=== PATIENT | male | born 1955 | race Caucasian/White ===

== ENCOUNTER 2018-04-26 11:51 | Outpatient (CLI) | payer OTHER ==
--- NOTE | 2018-04-26 16:10 | PET ---
PET WITH CT SKULL TO MID THIGH: CLINICAL HISTORY: Malignant neoplasm of uvula. No prior PET CT imaging available. RADIOPHARMACEUTICAL: 10.7 mCi F18-FDG IV intermixed with 10 mL 0.9% sodium chloride. FINDINGS: There is appropriate biodistribution of radiotracer activity. There are numerous hypermetabolic and enlarged right cervical chain lymph nodes, which span the right neck from the level of the submandibular region to the right supraclavicular fossa, with SUV maximum of approximately 9.5. There is no obvious hypermetabolic mass at the level of the uvula. Limited valerie luation of the oral cavity is present due to prominent metallic spray artifact from dental amalgam. T here is abnormal soft tissue prominence at the level of the right tongue base at the level of the lashae ttis, localizing to the posterior commissure region and within the adjacent prevertebral musculature, which may be physiologic, given the symmetric distribution. There are abnormal, hypermetabolic and e nlarged left periclavicular lymph nodes, and anterior superior mediastinal adenopathy to the left of midline. Within these regions, SUV maximum is approximately 6.2. Due to a fairly conglomerate morphol ogy of the right cervical chain lymph nodes, discrete size measurements are difficult to ascertain on the basis of the attenuation correction nondiagnostic, noncontrast CT imaging, although a dominant l ymph node within the right Level IIA measured approximately 3.0 cm in diameter, and dominant lymph no de on the left, located within the anterior superior left mediastinum measuring approximately 2.5 cm in diameter. There are numerous abnormal pulmonary nodular opacities throughout each lung, some of which demonstra te ground-glass appearance. Within these nodular opacities, there is increased metabolic activity, al though many of these findings are too small for reliable detection by PET resolution. The dominant no dular opacities located within the subpleura of the right lung demonstrate a SUV maximum of approxima tely 1.9-2.2, which is not technically hypermetabolic. There are numerous abnormal hypermetabolic lesions occupying both lobes of the liver with a dominant confluent hypermetabolic mass localizing to the posterior segment right hepatic lobe with a maximum S UV of approximately 11. There are numerous hypermetabolic soft tissue nodules of the central abdomen, difficult to reliably discern on the nonattenuation correction noncontrast CT, likely adenopathy. Th pura findings are hypermetabolic and some are difficult to distinguish from the adjacent pancreatic pa renchyma. These findings demonstrate maximum SUV of approximately 11. There is a hypermetabolic moder ate size left adrenal mass which demonstrates an irregular morphology by CT imaging, and a maximum REYNA V of approximately 10.2, indicative of metastasis. There are multifocal areas of increased metabolic activity distributed within left renal parenchyma, difficult to further discern as some of these find ings could relate to misregistration from the collection system. There are numerous hypermetabolic re troperitoneal, notably aortocaval metastatic lymph nodes. There are numerous blastic, hypermetabolic osseous metastases, notably within the spine, predominance of which are located at the mid to lower thoracic spine region. SUV maximum of these lesions ranges between 10 and 11. IMPRESSION: Widespread metastatic disease involving the neck, chest, and abdomen, as well as diffuse osseous meta stases. POS: [facility]
== END 2018-04-26 11:52 | disposition home or self-care (01) ==
LOC: PET 11:51
PROVIDERS: ATTEND Internal Medicine Hematology & Oncology
DX: C76.0 Malignant neoplasm of head, face and neck (principal); C76.1 Malignant neoplasm of thorax; C79.51 Secondary malignant neoplasm of bone; C76.2 Malignant neoplasm of abdomen
CPT/HCPCS: 78815; A9552

== ENCOUNTER 2018-04-28 11:56 | Inpatient (IN) | payer OTHER, SELFPAY ==
[~2018-04-28 11:56] MED LIST: ISOVUE-370 76%-LOCM 1 ML ONE
[2018-04-28 12:29] LABS: #Lymphocytes 0.5 thou/uL (1.20-3.40); #Monocytes 0.4 thou/uL (0.11-0.59); #Neutrophils 11.5 thou/uL (1.40-6.50); %Basophils 0.2 % (0.0-1.0); %Eosinophils 0.3 % (0.0-10.0); %Lymphocytes 4.3 % (21.0-51.0); %Monocytes 3.3 % (0.0-10.0); Hemoglobin 11.6 g/dL (14.0-18.0); Mean Corpuscular HGB CONC 31.7 g/dL (32.0-36.0); Mean Corpuscular Hemoglobin 30.4 pg (27.0-31.0); Mean Corpuscular Volume 95.9 fL (78.0-98.0); Mean Platelet Volume 9.3 fL (7.4-10.4); Platelet Count 269 thou/uL (130-400); RBC Distribution Width 14.1 % (11.5-14.5); Red Blood Cell (RBC) Count 3.83 mill/uL (4.70-6.10); White Blood Cell (WBC) Count 12.5 thou/uL (4.8-10.8)
[2018-04-28 12:52] LABS: ALT (SGPT) 89 U/L (8-55); AST (SGOT) 109 U/L (5-34); Albumin 3.5 g/dL (3.4-4.8); Alkaline Phosphatase 582 U/L (40-150); Anion Gap 17 mmol/L (10-20); BUN (Urea Nitrogen) 22 mg/dL (8.4-25.7); Bilirubin, Total 0.7 mg/dL (0.2-1.2); Calc. Creatinine Clearance 0 mL/min (70-130); Calcium 9.8 mg/dL (7.8-10.44); Carbon Dioxide 22 mmol/L (23-31); Chloride 99 mmol/L (98-107); Estimated GFR-MDRD 66; Globulin 4.1 g/dL (2.4-3.5); Glucose 96 mg/dL (80-115); Potassium 5.4 mmol/L (3.5-5.1); Protein, Total 7.6 g/dL (5.8-8.1); Sodium 133 mmol/L (136-145)
[2018-04-28 13:14] LABS: CKMB 2.2 ng/mL (0-6.6)
--- NOTE | 2018-04-28 13:58 | RAD ---
PORTABLE CHEST 1 VIEW: Date: 04/28/18 Time: 1240 hours HISTORY: Liver, kidney, and lung cancer. Shortness of breath. FINDINGS/IMPRESSION: The heart size is normal. The aorta is tortuous. The lungs are well expanded without lobar consolidat ion, pneumothoraces, or pleural effusions. The aorta is tortuous. Mild patchy infiltrates are seen, r ight greater than left. Small nodules are also noted. Findings are suspicious for metastatic disease. POS: [facility]
--- NOTE | 2018-04-28 14:12 | CT ---
CT ANGIO CHEST WITH CONTRAST: Date: 04/28/18 HISTORY: Hypoxia. COMPARISON: Chest radiograph same date. PET CT 2 days prior. FINDINGS: CT angiogram chest performed after the intravenous administration of contrast. 3D rendering is provid ed. FINDINGS: The mid ascending aorta measures 4.6 cm in size, dilated. Transverse and descending aorta are normal. No intimal flap is appreciated. There is artifactual decreased attenuation of the right lower lobe pulmonary arteries, for which an i ntraluminal defect is not seen, only linear areas of hypointensity due to motion. Extensive hepatic m etastatic disease. Numerous peripheral opacities throughout the lungs, predominantly in the upper lob es. The full extent of metastatic disease has been described on the PET CT dated 04/26/18. Large abno rmal prevascular lymph node measures 2.0 cm in short axis. There is an abnormal mass in the left adrenal gland containing calcifications. Osseous metastatic dis ease has been described. IMPRESSION: 1. No proximal or segmental pulmonary arterial filling defect given the limits of this examination. 2. Peripherally predominant patchy opacity, some with ground-glass, throughout the lungs. This has i maging characteristics of organizing pneumonia. 3. As described on the PET CT 2 days prior, there is extensive metastatic disease. 4. Ascending aortic dilatation measuring up to 4.5 cm. POS: [facility]
[2018-04-28 16:38] LABS: CKMB 1.8 ng/mL (0-6.6)
[2018-04-28] MEDS ORDERED: Ondansetron ODT 4 MG TAB SL PRN (18:29)
[2018-04-28] MEDS ORDERED: Ondansetron PF 4 MG/2 ML Vial IVP PRN ×2 (18:29→18:31)
[2018-04-28] MEDS ORDERED: Acetaminophen 325 MG TAB PO PRN ×2 (18:29→18:31)
[2018-04-28] MEDS ORDERED: HYDROcodone/Acetaminophen 5/325 mg Tablet PO PRN ×2 (18:29)
[2018-04-28] MEDS ORDERED: Ondansetron ODT 4 MG TAB PO PRN (18:31)
[2018-04-28] MEDS ORDERED: Acetaminophen/Codeine 30-300mg Tablet PO PRN (18:31)
[2018-04-28] MEDS ORDERED: Bisacodyl 5 MG TAB PO PRN (18:31)
[2018-04-28] MEDS ORDERED: hydrALAZINE 20 MG/ML VIAL SLOW IVP PRN (18:31)
[2018-04-28] MEDS ORDERED: Senokot S 8.6-50 MG TAB PO PRN (18:31)
[2018-04-28] MEDS: Famotidine 20 MG TAB PO SCH (19:39)
[2018-04-28] MEDS: Docusate 100 MG CAP PO SCH (19:39)
[2018-04-28] MEDS: Azithromycin 500 MG in Sodium Chloride 0.9% 250 ML 250 ML IVPB SCH (19:40)
[2018-04-28] MEDS: traMADol HCl 50 MG TAB PO PRN (19:49)
[2018-04-28] MEDS: cefTRIAXone\\ROCEPHIN 1 GM in Sodium Chloride 0.9% 100 ML IVPB SCH (21:24)
--- NOTE | 2018-04-28 21:26 | HP ---
PRIMARY CARE PHYSICIAN: Gerda Caro, her #[phone]. ONCOLOGIST: Dr. Soliman. CHIEF COMPLAINT: Shortness of breath. HISTORY OF PRESENT ILLNESS: Mr. Brown is a very pleasant 62-year-old gentleman who presents to the emergency room with complaints of shortness of breath. He says it has been worse over the last 10 days. He says this all started a couple of months ago when he had what he thought was probably a bronchitis or pneumonia and he was seen by his primary care physician. She evaluated him and initially treated him for pneumonia, but then it was ultimately found that he had lung cancer which was metastatic squamous cell carcinoma. He says that he has not yet received treatment. He is still in the process of determining the exact identity or a pathology of the cancer and he had been stable after being treated with antibiotics earlier last month, but then in the last 10 days he has been getting progressively short of breath. He says it is worse when he tries to move or changing position. He says when he does move it is suffocating and he says the distress score is about 8/ 10. He denies having any chest pain other than some pain in the lower right side. He has had a cough which is productive of some whitish sputum. No hemoptysis. No fever, no chills, but he does have a poor appetite and notes abdominal pain and nausea as well as bloating when he tries to eat. When he was evaluated in the ER, he had a chest x-ray as well as CT angiogram of the chest done. There was no evidence of pulmonary embolism. However, it was found that he had bilateral patchy infiltrates, worrisome for pneumonia, as well as advanced metastatic disease in his chest. REVIEW OF SYSTEMS: All systems were reviewed and are negative except for that mentioned in the history of present illness. 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 He has a history of radiculopathy at T2 as well as internal and external hemorrhoids. PAST SURGICAL HISTORY: He has had surgery for pilonidal cyst. ALLERGIES: NO KNOWN DRUG ALLERGIES. FAMILY HISTORY: His father at age 47 of an NE. Older brother had a five-vessel CABG. Brother also had hemorrhoids. SOCIAL HISTORY: He is . He has two adult children. He is a retired ER nurse. He is a former smoker. He quit on this just past year. He smoked half a pack of cigarettes for 40 years. He occasionally uses marijuana, last use was three months ago and he is a social drinker and he would like to be a full code, but would not want to be on a ventilator or life support for a long time. CURRENT MEDICATIONS: Include 1. Tylenol No. 3 q.6 as needed. 2. Lisinopril daily. 3. Skelaxin 800 mg as needed. 4. Prednisone 20 mg daily. 5. Lisinopril 10 mg daily. 6. Metamucil as needed. PHYSICAL EXAMINATION: GENERAL: He is alert and oriented. He appears to be in no acute distress. He is well developed and well nourished. VITAL SIGNS: Blood pressure is 158/104, heart rate 71, respiratory rate of 20, temperature is 98.4. His O2 saturation was 72% on room air and then 97% on oxygen. HEENT: His pupils are equal, round, and reactive. Extraocular muscles are intact. His sclerae are anicteric. Throat, there is no erythema, no exudates. No adenopathy. LUNGS: He has bilateral wheezing. There are no rales. CARDIOVASCULAR: He has a normal S1, S2. No S3 or S4. He has a grade 2/6 systolic murmur. ABDOMEN: Soft. He did have some right upper quadrant tenderness. Positive for bowel sounds. There is no rebound or guarding. EXTREMITIES: There is no clubbing or cyanosis, no edema. NEUROLOGIC: Grossly nonfocal. LABORATORY DATA: White blood cell count 12.5, hemoglobin 11.6, hematocrit is 36.7, and platelet count is 269. Sodium 133, potassium 5.4, chloride is 99, CO2 is 22 , BUN of 22, creatinine 1.13, glucose is 96, AST is 109, ALT is 89, alkaline phosphatase is 582. ASSESSMENT: This is a pleasant 62-year-old gentleman who presents with an acute on chronic respiratory failure with hypoxemia, likely due to a combination of factors including advancing lung cancer as well as a bilateral pneumonia. He will be admitted to telemetry as his troponin is slightly elevated. Start him on IV antibiotics initially for a community-acquired pneumonia. Given he also has the complicating factor of the lung cancer, we will consult Pulmonology to aid in his management. -Squamous cell lung metastatic cancer. He is seeing Dr. Soliman, has currently not started treatment and his plan is ultimately to go to [facility] for a clinical trial. -Hypertension. We will continue lisinopril as well as p.r.n. medication. -He will be placed on DVT and GI prophylaxis. - Symptom control. We will start with tramadol and also offer Tylenol No. 3 as needed and titrate pain medications as necessary. Job ID: [id number] MTDD
[2018-04-28 22:59] VITALS: BMI 23.5
[2018-04-29 06:39] LABS: #Lymphocytes 0.8 thou/uL (1.20-3.40); #Monocytes 0.7 thou/uL (0.11-0.59); %Basophils 0.2 % (0.0-1.0); %Eosinophils 0.3 % (0.0-10.0); %Lymphocytes 5.9 % (21.0-51.0); %Monocytes 5.4 % (0.0-10.0); %Neutrophils 88.2 % (42.0-75.0); Hemoglobin 10.3 g/dL (14.0-18.0); Mean Corpuscular HGB CONC 32.6 g/dL (32.0-36.0); Mean Corpuscular Hemoglobin 31.4 pg (27.0-31.0); Mean Corpuscular Volume 96.3 fL (78.0-98.0); Mean Platelet Volume 9.4 fL (7.4-10.4); Platelet Count 224 thou/uL (130-400); RBC Distribution Width 14.3 % (11.5-14.5); Red Blood Cell (RBC) Count 3.28 mill/uL (4.70-6.10); White Blood Cell (WBC) Count 13.6 thou/uL (4.8-10.8)
[2018-04-29 06:54] LABS: Anion Gap 14 mmol/L (10-20); BUN (Urea Nitrogen) 22 mg/dL (8.4-25.7); Calc. Creatinine Clearance 85 mL/min (70-130); Calcium 8.6 mg/dL (7.8-10.44); Carbon Dioxide 22 mmol/L (23-31); Chloride 101 mmol/L (98-107); Estimated GFR-MDRD 76; Glucose 108 mg/dL (80-115); Potassium 4.8 mmol/L (3.5-5.1); Sodium 132 mmol/L (136-145)
[2018-04-29] MEDS ORDERED: Sodium Chloride 0.65% Nasal 44 ML BOT EA NARE PRN (06:54)
--- NOTE | 2018-04-29 10:10 | PDOC.PN ---
- Subjective Encounter Start Date: 04/29/18 Encounter Start Time: 10:08 Mr. Brown was see today in follow-up of Pneumonia and Metastatic lung cancer. He is feeling very short of breath today. He does not notice any improvement in his breathing overnight. He is very " winded " with talking and changing positions. - Objective Resuscitation Status - Order Detail: 04/28/18 17:28 Resuscitation Status Routine Resuscitation Status: FULL: Full Resuscitation MAR Reviewed: Yes Vital Signs & Weight: Vital Signs (12 hours) Temp Pulse Resp BP Pulse Ox 04/29/18 07:50 97.4 F L 84 22 H 131/90 92 L 04/29/18 02:56 97.8 F 92 15 123/75 91 L Weight Weight 173 lb 8 oz Result Diagrams: 04/29/18 05:50 04/29/18 05:50 Phys Exam - Physical Examination HEENT: PERRLA Respiratory: no wheezing, no rales, no rhonchi Cardiovascular: RRR, no significant murmur, no rub Gastrointestinal: soft, non-tender, no distention, positive bowel sounds Musculoskeletal: no edema, pulses present Dx/Plan (1) Acute respiratory failure with hypoxemia Code(s): J96.01 - ACUTE RESPIRATORY FAILURE WITH HYPOXIA Status: Acute (2) Pneumonia, community acquired Code(s): J18.9 - PNEUMONIA, UNSPECIFIED ORGANISM Status: Acute (3) Metastatic squamous cell carcinoma Code(s): C79.9 - SECONDARY MALIGNANT NEOPLASM OF UNSPECIFIED SITE Status: Acute (4) Hypertension Code(s): I10 - ESSENTIAL (PRIMARY) HYPERTENSION Status: Chronic - Plan * Acute respiratory failure- not much improvement overnight- will continue the current antibiotics * Continue Neb treatments and steroids , and await further recommendations from PCCM * HTN- blood pressure is stable. * Symptom relief
[2018-04-29] MEDS: predniSONE 20 MG TAB PO SCH (10:41)
[2018-04-29] MEDS: Docusate 100 MG CAP PO SCH ×2 (10:42→20:38)
[2018-04-29] MEDS: Enoxaparin Sodium 40 MG/0.4 ML SYRINGE SC SCH (10:42)
[2018-04-29] MEDS: Famotidine 20 MG TAB PO SCH ×2 (10:48→20:39)
[2018-04-29] MEDS: traMADol HCl 50 MG TAB PO PRN ×2 (10:48→20:37)
[2018-04-29] MEDS: Fluticasone Propionate Nasal Spray 16 gm Bottle NASAL SCH (11:10)
[2018-04-29] MEDS ORDERED: Lorazepam 2 MG/ML VIAL SLOW IVP PRN (16:29)
[2018-04-29] MEDS: Lorazepam 0.5 MG TAB PO PRN ×2 (17:38→20:39)
--- NOTE | 2018-04-29 18:02 | CON ---
DATE OF CONSULTATION: HISTORY OF PRESENT ILLNESS: Bruce Brown is a very pleasant 62-year-old male. 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 He lives in the [facility]. He says he 1st started feeling bad in February while when he noticed dyspnea on exertion. He was seen in [place] last year for lymphadenopathy in his neck. He said he had a needle aspirate of one of his lymph nodes and was told that he did not have any cancer, but it was suggested to him that he have a lymph node removed for a more thorough examination. He said he was asked for 5000 dollar deposit for the lymph node biopsy. This upset him, so he never went back. He was seen early in 2019 by his nurse practitioner in [place], she felt he might have pneumonia. I have explained that this is a reasonable diagnosis after reviewing his radiograph. When he failed to improve and he developed more chest discomfort and right upper quadrant discomfort, he underwent CT scanning, which showed multiple nodular lesions in his chest as well as extensive hepatic metastases. His lymphadenopathy has persisted, and from what he tells me, I believe has progressed. PAST MEDICAL HISTORY: Remarkable for; 1. Trigeminal neuralgia. 2. He said when he was a teenager, he developed a red rash and he has dealt with this rash in his entire life. 3. History of hypertension. 4. History of a recent biopsy of his liver, which revealed squamous cell cancer. 5. History of radiculopathy. 6. History of hemorrhoids in his entire life. 7. He is not smoking now, but said he has been on and off smoker his entire life , never more than a pack a day. FAMILY HISTORY: Positive for vascular disease. SOCIAL HISTORY: He is not a daily drinker. MEDICATIONS: Prior to admission, he is on; 1. Lisinopril. 2. Skelaxin. 3. Prednisone. 4. Lisinopril. 5. Metamucil. PHYSICAL EXAMINATION: GENERAL: He is in no distress. He is afebrile. Heart rate is in the 90s, respiratory rate is 20, oximetry is 93 on 4L, blood pressure is 131/90. HEENT: Pupils are equal. Sclerae are anicteric. Extraocular movements are full. NECK: Supple. He does have palpable rock-hard nodes in both sides of his neck. LUNGS: Remarkable for coarse equal breath sounds with fine crackles at his bases. HEART: Regular rhythm. No S3. ABDOMEN: Soft and nontender. EXTREMITIES: Without clubbing, cyanosis, or edema. LABORATORY DATA: White count 13.6, hemoglobin 10.3, and platelets 224. Sodium 132, potassium 4.8, chloride 101, bicarb 22, BUN 22, creatinine 1.0, and glucose 108. Liver enzymes as expected are elevated, alkaline phosphatase is 582, it is higher than I would expect, which would make me wonder if he has bone mets. He had PET imaging on 04/26, which showed multiple hot cervical nodes, supraclavicular node on the right, it had SUVs of 9, had an abnormality seen on the CT images at the base of the right side of his tongue. He had left paraclavicular lymph nodes and superior mediastinal lymph nodes. He had pulmonary nodules, which had increased metabolic activity. He also had some ground glass infiltrates. The liver was full of hypermetabolic lesions. He had multiple abdominal lymph nodes that were hypermetabolic. He had adrenal masses, which are hypermetabolic. Retroperitoneal and aortocaval nodes were also noted. He had numerous blastic hypermetabolic osseous mets in his spine. IMPRESSION: Widespread metastatic squamous cell carcinoma. I suspect all of his pulmonary complaints (progressive dyspnea on exertion) are not infectious). I suspect all his complaints related to widespread squamous cell carcinoma. Given that he presented with lymph nodes, I would wonder if his presentation was not a head and neck cancer, although certainly could be a lung cancer. This is a very aggressive. In any event, he was being contemplated for transfer to [facility] for clinical trial. It has been 2 weeks since he has been seen by the oncologist and I have contacted the oncologist on-call. I would recommend that we start treatment immediately if this is feasible, but because I do not think he has 1-2 months to qualify for a protocol in [facility]. I suspect he has less than a month unless something improved dramatically here in the near future. His primary oncologist will be back on Wednesday and will make recommendations. Hopefully, all the tumor testing for immuno markers will be back by then. Job ID: [id number] 70 minute consulte with 50% of time spent on unit coordinating care [facility]
[2018-04-29] MEDS: Azithromycin 500 MG in Sodium Chloride 0.9% 250 ML 250 ML IVPB SCH (20:26)
[2018-04-29] MEDS: cefTRIAXone\\ROCEPHIN 1 GM in Sodium Chloride 0.9% 100 ML IVPB SCH (21:52)
[2018-04-30] MEDS: traMADol HCl 50 MG TAB PO PRN ×3 (05:20→21:37)
[2018-04-30] MEDS: Fluticasone Propionate Nasal Spray 16 gm Bottle NASAL SCH (10:55)
[2018-04-30] MEDS: predniSONE 20 MG TAB PO SCH (10:56)
[2018-04-30] MEDS: Lisinopril 10 MG TAB PO SCH (10:57)
[2018-04-30] MEDS: Famotidine 20 MG TAB PO SCH ×2 (10:57→21:38)
[2018-04-30] MEDS: Docusate 100 MG CAP PO SCH ×2 (10:58→21:38)
[2018-04-30] MEDS: Enoxaparin Sodium 40 MG/0.4 ML SYRINGE SC SCH (10:59)
--- NOTE | 2018-04-30 15:26 | PDOC.PN ---
- Subjective Encounter Start Date: 04/30/18 Encounter Start Time: 15:24 Mr. Brown was seen today in follow-up of Metastatic lung cancer and respiratory failure. He has continues to have progressive shortness of breath. He also continues to have the pain on the right side, and this has been relieved with tramadol. - Objective Resuscitation Status - Order Detail: 04/28/18 17:28 Resuscitation Status Routine Resuscitation Status: FULL: Full Resuscitation MAR Reviewed: Yes Vital Signs & Weight: Vital Signs (12 hours) Temp Pulse Resp BP Pulse Ox 04/30/18 13:37 92 L 04/30/18 13:34 111 H 16 04/30/18 10:45 97.8 F 102 H 20 136/96 H 100 04/30/18 04:00 97.9 F 79 18 131/87 100 Weight Weight 173 lb 8 oz I&O: 04/29/18 04/30/18 05/01/18 06:59 06:59 06:59 Intake Total 610 Output Total 675 Balance -65 Result Diagrams: 04/29/18 05:50 04/29/18 05:50 Phys Exam - Physical Examination HEENT: PERRLA Respiratory: no wheezing, no rales, no rhonchi, clear to auscultation bilateral Cardiovascular: RRR, no significant murmur, no rub Gastrointestinal: soft, non-tender, positive bowel sounds Musculoskeletal: no edema, pulses present Dx/Plan (1) Acute respiratory failure with hypoxemia Code(s): J96.01 - ACUTE RESPIRATORY FAILURE WITH HYPOXIA Status: Acute (2) Pneumonia, community acquired Code(s): J18.9 - PNEUMONIA, UNSPECIFIED ORGANISM Status: Acute (3) Metastatic squamous cell carcinoma Code(s): C79.9 - SECONDARY MALIGNANT NEOPLASM OF UNSPECIFIED SITE Status: Acute (4) Hypertension Code(s): I10 - ESSENTIAL (PRIMARY) HYPERTENSION Status: Chronic - Plan * Acute Respiratory Failure- Mostly due to advancing metastatic cancer to the lungs- Discussed with Dr. Galicia . The Oncology team was still awaiting the results from testing for PLG-1 receptors, but he may need to start chemotherapy before results are final * Possible Pneumonia- continue Rocephin and Azithromycin. * HTN- blood pressure is better- Lisinopril has been re-started * Symptom relief- he is getting acceptable results with Tramadol and Ativan so far
--- NOTE | 2018-04-30 16:58 | PRG ---
DATE OF SERVICE: 04/30/2018 SUBJECTIVE: Bruce Brown feels about the same. He has had no fever. He is mildly dyspneic at rest, but as long as he did not move, he says he feels okay. OBJECTIVE: He is afebrile. Heart is 102 to 111 this afternoon, respiratory rates in the teens to low 20s, oximetry is 92% on 5 L. Blood pressure 136/96. Lungs are remarkable for crackles at his bases. Heart is regular rhythm. Abdomen is soft. Cultures are negative at 48 hours. IMPRESSION: Progressive widely metastatic squamous cell carcinoma ?lung primary versus upper airway primary. In the event, he has been seen by Oncology and hopefully there will be a treatment plan shortly. I do believe we can switch him off IV antimicrobial therapy at this point. I believe quite strongly that all of his radiographic abnormalities are related to his malignancy. I believe all of his symptoms are as well. Job ID: [id number]
[2018-04-30] MEDS: Cefdinir 300 MG CAP PO SCH (21:37)
[2018-04-30] MEDS: Vancomycin HCl 1.25 GM in Sodium Chloride 0.9% 250 ML 250 ML IVPB SCH (22:49)
--- NOTE | 2018-04-30 22:50 | RAD ---
PORTABLE CHEST ONE VIEW: 04/30/18 at 9:37 p.m. HISTORY: Shortness of breath. FINDINGS: Comparison made to exam of 04/28/18. The heart size is normal. patchy infiltrates are seen in the lower lung zones on either side. A small left pleural effusion may be present. IMPRESSION: Findings are suspicious for pneumonia. POS: [facility]
[2018-04-30] MEDS ORDERED: Vancomycin HCl 1 GM in Premix Bag 1 BAG IVPB SCH (23:00)
[2018-04-30 23:06] LABS: #Neutrophils 13.2 thou/uL (1.40-6.50); %Eosinophils 0.2 % (0.0-10.0); %Lymphocytes 6.4 % (21.0-51.0); %Monocytes 6.4 % (0.0-10.0); Hemoglobin 13.1 g/dL (14.0-18.0); Lactic Acid 2.2 mmol/L (0.5-2.2); Mean Corpuscular Hemoglobin 30.7 pg (27.0-31.0); Mean Corpuscular Volume 96.1 fL (78.0-98.0); Mean Platelet Volume 9.6 fL (7.4-10.4); Platelet Count 263 thou/uL (130-400); RBC Distribution Width 14.9 % (11.5-14.5); Red Blood Cell (RBC) Count 4.27 mill/uL (4.70-6.10); White Blood Cell (WBC) Count 15.2 thou/uL (4.8-10.8)
[2018-04-30 23:12] LABS: Anion Gap 17 mmol/L (10-20); BUN (Urea Nitrogen) 29 mg/dL (8.4-25.7); Calc. Creatinine Clearance 80 mL/min (70-130); Calcium 9.4 mg/dL (7.8-10.44); Carbon Dioxide 19 mmol/L (23-31); Chloride 99 mmol/L (98-107); Estimated GFR-MDRD 70; Glucose 107 mg/dL (80-115); Potassium 5.3 mmol/L (3.5-5.1); Sodium 130 mmol/L (136-145)
[2018-04-30 23:14] LABS: Troponin I 0.116 ng/mL (< 0.028)
[2018-05-01] MEDS: Piperacillin/Tazobactam 4.5 GM in Sodium Chloride 0.9% 100 ML IVPB SCH ×3 (00:35→17:11)
[2018-05-01] MEDS: Sodium Chloride 0.9% 1,000 ML IV SCH ×3 (00:54→22:31)
[2018-05-01 04:49] LABS: Troponin I 0.097 ng/mL (< 0.028)
[2018-05-01] MEDS: Docusate 100 MG CAP PO SCH ×2 (08:50→20:41)
[2018-05-01] MEDS: predniSONE 20 MG TAB PO SCH (08:50)
[2018-05-01] MEDS: Lisinopril 10 MG TAB PO SCH (08:50)
[2018-05-01] MEDS: Cefdinir 300 MG CAP PO SCH ×2 (08:50→20:41)
[2018-05-01] MEDS: Famotidine 20 MG TAB PO SCH ×2 (08:51→20:41)
[2018-05-01 09:09] LABS: ALT (SGPT) 103 U/L (8-55); AST (SGOT) 133 U/L (5-34); Albumin 2.9 g/dL (3.4-4.8); Alkaline Phosphatase 647 U/L (40-150); Anion Gap 18 mmol/L (10-20); BUN (Urea Nitrogen) 26 mg/dL (8.4-25.7); Calc. Creatinine Clearance 93 mL/min (70-130); Carbon Dioxide 18 mmol/L (23-31); Chloride 103 mmol/L (98-107); Estimated GFR-MDRD 83; Globulin 3.6 g/dL (2.4-3.5); Glucose 78 mg/dL (80-115); Potassium 4.8 mmol/L (3.5-5.1); Protein, Total 6.5 g/dL (5.8-8.1); Sodium 134 mmol/L (136-145)
[2018-05-01] MEDS: traMADol HCl 50 MG TAB PO PRN ×3 (09:13→22:26)
--- NOTE | 2018-05-01 12:03 | PDOC.PN ---
- Subjective Encounter Start Date: 05/01/18 Encounter Start Time: 12:01 Mr. Brown was seen today in follow-up of Acute respiratory failure from advancing metastatic cancer. He continues to get progressive shortness of breath. - Objective Resuscitation Status - Order Detail: 04/28/18 17:28 Resuscitation Status Routine Resuscitation Status: DNAR: NO Resuscitation Discussed with: pt as requested to be DNR/DNI MAR Reviewed: Yes Vital Signs & Weight: Vital Signs (12 hours) Temp Pulse Resp BP BP Pulse Ox 05/01/18 08:50 119/87 05/01/18 07:19 100 05/01/18 07:08 84 12 05/01/18 03:57 97.6 F 98 20 123/85 99 05/01/18 01:35 85 20 100 Weight Weight 173 lb 8 oz I&O: 04/30/18 05/01/18 05/02/18 06:59 06:59 06:59 Intake Total 610 1430 Output Total 675 Balance -65 1430 Result Diagrams: 04/30/18 22:44 05/01/18 08:42 Phys Exam - Physical Examination HEENT: PERRLA Cardiovascular: RRR, no significant murmur, no rub Gastrointestinal: soft, non-tender, no distention, positive bowel sounds Musculoskeletal: no edema Dx/Plan (1) Acute respiratory failure with hypoxemia Code(s): J96.01 - ACUTE RESPIRATORY FAILURE WITH HYPOXIA Status: Acute (2) Pneumonia, community acquired Code(s): J18.9 - PNEUMONIA, UNSPECIFIED ORGANISM Status: Acute (3) Metastatic squamous cell carcinoma Code(s): C79.9 - SECONDARY MALIGNANT NEOPLASM OF UNSPECIFIED SITE Status: Acute (4) Hypertension Code(s): I10 - ESSENTIAL (PRIMARY) HYPERTENSION Status: Chronic - Plan * Acute respiratory failure with hypoxemia- the patient's oxygen requirements continue to increase- he is now on a Ventturi mask * He says he has decided to change his code status. He does not want to be placed on a Ventilator, even if he starts chemotherapy, and with the knowledge that his symptoms could worsen with chemotherapy, before they improve * HTN- blood pressure has remained stable * Possible Pneumonia- he was placed on broad spectrum antibiotics again last night * Metastatic Squamous cell carcinoma- Oncolog recommendations noted- plan is to start therapy as soon as possible.
[2018-05-01] MEDS: Enoxaparin Sodium 40 MG/0.4 ML SYRINGE SC SCH (12:28)
[2018-05-01] MEDS: Vancomycin HCl 1.25 GM in Sodium Chloride 0.9% 250 ML 250 ML IVPB SCH ×2 (12:28→22:27)
[2018-05-01] MEDS: Fluticasone Propionate Nasal Spray 16 gm Bottle NASAL SCH (12:52)
[2018-05-01 19:46] VITALS: TEMP 97.6
[2018-05-02] MEDS: Piperacillin/Tazobactam 4.5 GM in Sodium Chloride 0.9% 100 ML IVPB SCH ×2 (00:38→10:17)
[2018-05-02 04:51] LABS: CEA, Serum 9.63 ng/mL (< or = 5.0)
[2018-05-02 04:56] LABS: Band 4 % (5-11); Eosinophils 1 % (0-10); Hemoglobin 12.6 g/dL (14.0-18.0); Large Platelets SLIGHT; Lymphocytes 8 % (21-51); MDiff Complete? YES; Mean Corpuscular HGB CONC 31.2 g/dL (32.0-36.0); Mean Corpuscular Hemoglobin 30.3 pg (27.0-31.0); Mean Corpuscular Volume 97.1 fL (78.0-98.0); Mean Platelet Volume 9.7 fL (7.4-10.4); Monocytes 2 % (0-10); Neutrophil 85 % (42-75); Nucleated RBC 1 % (0); Platelet Count 236 thou/uL (130-400); Platelet Morphology Comment Appears Adequate; Red Blood Cell (RBC) Count 4.17 mill/uL (4.70-6.10); White Blood Cell (WBC) Count 16.2 thou/uL (4.8-10.8)
[2018-05-02 05:04] LABS: HBSAB Concentration 1.82 mIU/mL; HBSAg Index 0.22 S/CO (0-0.99); Hep B Core Total Ab Non-Reactive (NonReactive); Hep B Core Total Index 0.03 S/CO (0-0.79); Hep B Surf AB Non-Reactive (NonReactive); Hep B Surf Ag Non-Reactive S/CO (NonReactive)
[2018-05-02] MEDS ORDERED: Fosaprepitant Dimeglumine 150 MG in Sodium Chloride 0.9% 250 ML 150 ML IVPB SCH (05:30)
[2018-05-02] MEDS ORDERED: Palonosetron HCl 0.25 MG in Sodium Chloride 0.9% 50 ML IVPB SCH (05:30)
[2018-05-02] MEDS ORDERED: Dexamethasone 10 MG/ML VIAL SLOW IVP SCH (05:30)
[2018-05-02] MEDS ORDERED: Sodium Chloride 0.9% 1,000 ML IV SCH ×2 (05:30→09:52)
[2018-05-02] MEDS ORDERED: DOCETAXEL IVPB SCH (05:45)
[2018-05-02] MEDS ORDERED: SODIUM CHLORIDE 0.9% IVPB SCH (05:45)
[2018-05-02] MEDS ORDERED: MANNITOL IV SCH (05:45)
[2018-05-02] MEDS ORDERED: CISPLATIN IV SCH (05:45)
[2018-05-02] MEDS ORDERED: SODIUM CHLORIDE 0.9% IV SCH (05:45)
[2018-05-02 08:47] LABS: Base Excess (BEa) -3.6 mEq/L (-2.0 to +3.0); CO2 Tension 32.1 mmHg (35.0-45.0); Calcium, Ionized 1.28 mmol/L (1.12-1.30); Carboxyhemoglobin (COHb) 1.3 gm% (0.0-3.0); Hemoglobin (Hb) 13.7 g/dL (14.0-18.0); Potassium - ABG Lab 4.92 mmol/L (3.70-5.30); pH, Arterial 7.41 (7.35-7.45)
[2018-05-02 08:48] LABS: O2 Tension (PaO2) 52.5 mmHg (> 80.0); Puncture Site LR
[2018-05-02 08:49] LABS: ALV-art Gradient 192.575 (0-20)
[2018-05-02] MEDS ORDERED: Furosemide 40 MG/4 ML VIAL IVP ONE (09:29)
[2018-05-02] MEDS ORDERED: Enoxaparin Sodium 80 MG/0.8 ML SYRINGE SC SCH ×3 (09:52→21:00)
[2018-05-02] MEDS ORDERED: Furosemide 100 MG/10 ML VIAL SLOW IVP SCH (10:00)
[2018-05-02] MEDS: Docusate 100 MG CAP PO SCH (10:07)
[2018-05-02] MEDS: Fluticasone Propionate Nasal Spray 16 gm Bottle NASAL SCH (10:08)
[2018-05-02] MEDS: Lisinopril 10 MG TAB PO SCH (10:08)
[2018-05-02] MEDS: Famotidine 20 MG TAB PO SCH (10:08)
[2018-05-02 10:09] VITALS: BP 119/87
[2018-05-02 10:14] LABS: Lactic Acid 2.7 mmol/L (0.5-2.2)
--- NOTE | 2018-05-02 10:14 | RAD ---
CHEST ONE VIEW: History: Metastatic cancer. Comparison: Two day's prior. FINDINGS: Multifocal opacities are similar. Cardiac silhouette and mediastinal contours are similar. IMPRESSION: Similar examination of the chest. POS: [facility]
[2018-05-02 10:15] LABS: Vancomycin, Trough 18.6 ug/mL
[2018-05-02] MEDS ORDERED: methylPREDNISolone Sod Succ 40 MG VIAL IVP SCH ×2 (10:15→12:00)
[2018-05-02] MEDS: Morphine 10 MG/ML VIAL SLOW IVP PRN ×3 (10:18→12:37)
--- NOTE | 2018-05-02 10:38 | PDOC.PN ---
- Subjective Encounter Start Date: 05/02/18 Encounter Start Time: 10:36 Mr. Brown was seen today in follow-up of acute respiratory failure. He became more hypoxic last night. He was moved to the [facility], and has been placed on BIPAP. He is too short of breath to say much. He will use and gestures to help with communication. - Objective Resuscitation Status - Order Detail: 04/28/18 17:28 Resuscitation Status Routine Resuscitation Status: DNAR: NO Resuscitation Discussed with: pt as requested to be DNR/DNI MAR Reviewed: Yes Vital Signs & Weight: Vital Signs (12 hours) Temp Pulse Resp BP BP Pulse Ox 05/02/18 10:08 119/87 05/02/18 08:03 120 H 29 H 99 05/02/18 08:01 122 H 27 H 97 05/02/18 07:36 98 05/02/18 06:35 97.6 F 05/02/18 04:00 110 H 28 H 05/02/18 01:21 100 05/02/18 00:00 105 H 24 H 118/62 100 Weight Weight 173 lb 8 oz Most Recent Monitor Data Heart Rate from ECG 129 NIBP 90/73 NIBP BP-Mean 78 Respiration from ECG 26 SpO2 98 I&O: 05/01/18 05/02/18 05/03/18 06:59 06:59 06:59 Intake Total 1430 600 Output Total 400 Balance 1430 200 Result Diagrams: 05/02/18 04:04 05/01/18 08:42 Phys Exam - Physical Examination HEENT: PERRLA Respiratory: no rales, no rhonchi, wheezing present + rales bilaterally Cardiovascular: RRR, no significant murmur, no rub Gastrointestinal: soft, non-tender, no distention, positive bowel sounds Musculoskeletal: pulses present, edema present 1+ edema in both lower extremities Dx/Plan (1) Acute respiratory failure with hypoxemia Code(s): J96.01 - ACUTE RESPIRATORY FAILURE WITH HYPOXIA Status: Acute (2) Pneumonia, community acquired Code(s): J18.9 - PNEUMONIA, UNSPECIFIED ORGANISM Status: Acute (3) Metastatic squamous cell carcinoma Code(s): C79.9 - SECONDARY MALIGNANT NEOPLASM OF UNSPECIFIED SITE Status: Acute (4) Hypertension Code(s): I10 - ESSENTIAL (PRIMARY) HYPERTENSION Status: Chronic - Plan * Acute respiratory failure- he continues to have worsening symptoms- Discussed with Dr. Byrnes. Will give a trial of IV steroids, and Lasix IV. Continue antibiotics for now * HTN- blood pressure has been running a bit low- will hold Lisinopril. when the blood pressure is less than 110 * Metastatic Squamous cell- Dr. Byrnes and Dr. Galicia to discuss the best time to start Chemotherapy
[2018-05-02] MEDS: Enoxaparin Sodium 40 MG/0.4 ML SYRINGE SC SCH (11:07)
[2018-05-02] MEDS: Sodium Chloride 0.9% 1,000 ML IV SCH (11:08)
[2018-05-02] MEDS: Cefdinir 300 MG CAP PO SCH (11:08)
[2018-05-02] MEDS: predniSONE 20 MG TAB PO SCH (11:08)
[2018-05-02] MEDS ORDERED: Lisinopril 10 MG TAB PO SCH (11:30)
--- NOTE | 2018-05-02 11:40 | PRG ---
DATE OF SERVICE: 05/02/2018 SUBJECTIVE: Mr. Brown apparently yesterday evening and in the last night had progressive decline in his respiratory function. He was placed on non-rebreather, eventually placed on BiPAP, transferred to the Intermediate Care Unit. I was not notified of his decompensation or transfer. When I evaluated him this morning, he is in severe respiratory distress, could only speak in three-word sentences. I reviewed his chest x-ray from 22:17 last night, did not see much change. I repeated a chest radiograph at 08:52 this morning and did not see a whole lot of change with that either, but perhaps maybe some mild interstitial increased markings, but this is debatable. He was not wheezing on exam. He was not really receiving much relief from nebulizer treatments. Heart, regular rhythm. Rapid rate. Abdomen is soft. His blood pressures have been running in the 1 teens. I had a long meeting with him and a long meeting with his son. He is not a candidate for chemo in this setting. If he dramatically improves, then perhaps we can proceed forward with chemo, but unfortunately, if he responds to what we do today, then we will have to deal with a widely metastatic squamous cell carcinoma, which is unlikely to rapidly respond to chemotherapy. I did do a blood gas today, which shows a compensated metabolic acidosis that is mild. PH of 7.41, CO2 of 32, pO2 of 52, this is on 40%. I suspect he has interstitial spread of his tumor and I think he may have a vascular invasion of his tumor or microvascular thrombosis secondary to a hypercoagulable state and malignancy. He has no history of a cardiomyopathy. His x-ray is not consistent with congestive heart failure and his exam is not consistent with a COPD exacerbation. I really cannot image him with nuclear perfusion imaging at this point because of his instability I have explained to him and his son that we anticoagulate him at one dose of steroids. He will receive IV Solu-Medrol. He will receive frequent nebulizer treatments. I have explained to the son that I am not sure he can make it through the night and tomorrow, but we will continue to do our best. He made himself a DNR sometime within the last 24 hours from what I can tell. CRITICAL CARE TIME: 30 minutes. Job ID: [id number]
--- NOTE | 2018-05-02 18:03 | DIS ---
DATE OF ADMISSION: 04/28/2018 DATE OF DISCHARGE: 05/02/2018 SUMMARY: PRIMARY CARE PHYSICIAN: Gerda Caro. DATE OF : 05/02/2018. DIAGNOSES: Include; 1. Metastatic squamous cell carcinoma. The primary is suspected to be from the ENT area. 2. Hypertension. 3. History of trigeminal neuralgia. PROCEDURES: The procedures done during admission, the patient had a CT angiogram of the chest showing no evidence of any filling defect to suggest pulmonary embolism. There was some patchy opacities throughout the lungs, which had some characteristics of organizing pneumonia. There was extensive metastatic disease and an ascending aortic dilatation of 4.5 cm. CODE STATUS: DNR. ALLERGIES: NO KNOWN DRUG ALLERGIES. HOSPITAL COURSE: Mr. Brown is a pleasant 62-year-old gentleman, who was recently diagnosed with metastatic squamous cell carcinoma. It was thought to have originated from the uvula. He was in the process of having further identification of the tumor. He had recently been seen at the cancer center. They had sent the pathology off to see if he was a PD-L1 receptor positive. However, these studies had not returned. He had noticed that he had gotten progressive shortness of breath over the past month and more recently over the last 10 days. It was known that he had widely metastatic cancer including areas within the liver. He was admitted for possible pneumonia superimposed on the cancer. He was started on broad-spectrum IV antibiotics and Pulmonology was consulted. The patient was also placed on steroids. However, the patient became increasingly hypoxic over the course of his hospital stay. The patient initially was requiring only 2 L of oxygen on admission. Within the next couple of days, he advanced quickly to oxygen requirements up to requiring a Ventimask. Oncology was consulted at the time of admission. Unfortunately, the PDL receptor studies had not returned yet. Dr. Galicia was going to attempt to do a salvage chemotherapy on the date of . However, the patient became increasingly hypoxic. He had to be transferred to the [facility] on BiPAP. The patient did not want to be placed on a ventilator even if they started chemotherapy and there was some chance of recovery. Therefore, he became more hypoxic even on BiPAP. 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 Unfortunately, he before any further treatment could be undertaken and at 1313 hours as a result of overwhelming metastatic squamous cell cancer. Job ID: [id number]
[2018-05-03] MEDS ORDERED: Lisinopril 10 MG TAB PO SCH (09:00)
== END 2018-05-02 16:20 | disposition expired | DRG 189 ==
LOC: ERS 11:56 → ERHOLD 13:33 → 2NO 17:40 → ONC 04-30 18:15 → IMCU/EMU 05-02 06:36
PROVIDERS: ADMIT Internal Medicine; ATTEND Internal Medicine
PROC: 5A09357 Assistance with Respiratory Ventilation, Less than 24 Consecutive Hours, Continuous Positive Airway Pressure (ICD-10-PCS; principal; 2018-05-02)
DX: J96.21 Acute and chronic respiratory failure with hypoxia (principal); J18.9 Pneumonia, unspecified organism; C78.02 Secondary malignant neoplasm of left lung; C78.7 Secondary malignant neoplasm of liver and intrahepatic bile duct; C79.51 Secondary malignant neoplasm of bone; C77.8 Secondary and unspecified malignant neoplasm of lymph nodes of multiple regions; E87.2 Acidosis; D68.69 Other thrombophilia; C78.01 Secondary malignant neoplasm of right lung; Z66 Do not resuscitate; C05.2 Malignant neoplasm of uvula; I10 Essential (primary) hypertension; G50.0 Trigeminal neuralgia; Z87.891 Personal history of nicotine dependence; Z79.52 Long term (current) use of systemic steroids
CPT/HCPCS: 36415; 71045; 71275; 80048; 80053; 80202; 82378; 82553; 82805; 83605; 83880; 84484; 85025; 86704; 86706; 87040; 87340; 93005; 94640; 94660; 94760; 96365; 96366; 96375; J0456; J0696; J1453; J1650; J1940; J2060; J2150; J2270; J2469; J2543; J2920; J3370; J3480; J7050; J7620; J9060; J9171; Q9966